=== PATIENT | female | born 1965 | race Caucasian/White ===

== ENCOUNTER 2017-04-25 13:42 | Emergency (ER) | payer MEDICAID ==
[~2017-04-25] VITALS: Ht 170.2 cm; Wt 142.0 kg
[2017-04-25 13:48] VITALS: BP_SYST 133
[2017-04-25] MEDS ORDERED: NACL 0.9% 1,000 ML IV ONE (14:00)
[2017-04-25 14:22] LABS: BILIRUBIN,URINE NEGATIVE (NEGATIVE); BLOOD, URINE NEGATIVE (NEGATIVE); CLARITY/URINE SL HAZY (CLEAR); COLOR,URINE YELLOW (YELLOW); GLUCOSE,URINE NEGATIVE (NEGATIVE); KETONES,URINE NEGATIVE (NEGATIVE); LEUKOCYTE ESTERASE ,URINE NEGATIVE (NEGATIVE); NITRITE, URINE NEGATIVE (NEGATIVE); PH,URINE 5.5 (5.0-8.0); PROTEIN URINE NEGATIVE (NEGATIVE); UROBILINOGEN,URINE 0.2 (0.2-1.0)
[2017-04-25 14:54] LABS: BASOPHILS # (AUTO) 0.1 K/uL (0.0-0.2); BASOPHILS % (AUTO) 1.3 % (0.0-2.0); EOSINOPHILS # (AUTO) 0.2 K/uL (0.0-0.4); EOSINOPHILS % (AUTO) 2.3 % (0.0-4.0); HEMATOCRIT 42.7 % (36-48); LYMPHOCYTES # (AUTO) 2.4 K/uL (1.0-5.5); LYMPHOCYTES % (AUTO) 30.1 % (20.5-51.5); MEAN CORPUSCULAR HEMOGLOBIN 29 pg (27-31); MEAN CORPUSCULAR HGB CONC 33 % (32-36); MEAN CORPUSCULAR VOLUME 87 fL (79.0-98.0); MONOCYTES # (AUTO) 0.5 K/uL (0.0-1.0); MONOCYTES % (AUTO) 5.6 % (1.7-9.3); NEUTROPHILS # (AUTO) 4.9 K/uL (1.8-7.7); NEUTROPHILS % (AUTO) 60.7 % (40.0-70.0); PLATELET COUNT (AUTO) 284 K/uL (130-430); RED BLOOD CELL COUNT(AUTO) 4.93 MIL/uL (4.2-6.2); RED CELL DISTRIBUTION WIDTH 14.1 % (9.0-15.0); WHITE BLOOD COUNT (AUTO) 8.1 K/uL (4.8-10.8)
[2017-04-25 15:08] LABS: CREATININE 0.73 mg/dL (0.55-1.30); POTASSIUM 3.9 mmol/L (3.5-5.1)
[2017-04-25 15:15] LABS: TOTAL BILIRUBIN 0.5 mg/dL (0.0-1.0)
[2017-04-25 15:16] LABS: ALBUMIN 3.7 g/dL (3.4-4.8)
[2017-04-25 16:10] VITALS: BP_SYST 128
== END 2017-04-25 16:10 | disposition home or self-care (01) ==
LOC: SED 13:42
DX: K52.9 Noninfective gastroenteritis and colitis, unspecified (principal); R03.0 Elevated blood-pressure reading, without diagnosis of hypertension; E11.9 Type 2 diabetes mellitus without complications; J45.909 Unspecified asthma, uncomplicated; Z90.49 Acquired absence of other specified parts of digestive tract; Z90.710 Acquired absence of both cervix and uterus
CPT/HCPCS: 36415; 74176; 80053; 81003; 83690; 85025; 99285; J7030

== ENCOUNTER 2018-02-11 07:29 | Emergency (ER) | payer MEDICAID ==
[~2018-02-11] VITALS: Ht 170.2 cm; Wt 146.5 kg
[2018-02-11 07:34] VITALS: BP_SYST 128
[2018-02-11] MEDS ORDERED: KETOROLAC TROMETHAMINE 60 MG/2 ML VIAL IM ONE (07:45)
[2018-02-11] MEDS ORDERED: MORPHINE SULFATE 10 MG/ML VIAL IM ONE (08:45)
[2018-02-11] MEDS ORDERED: ONDANSETRON 4 MG ODT TAB PO ONE (08:45)
[2018-02-11 09:20] VITALS: BP_SYST 132
== END 2018-02-11 09:20 | disposition home or self-care (01) ==
LOC: SED 07:29
DX: M54.2 Cervicalgia (principal); J45.909 Unspecified asthma, uncomplicated; E11.9 Type 2 diabetes mellitus without complications; I10 Essential (primary) hypertension; Z86.79 Personal history of other diseases of the circulatory system
CPT/HCPCS: 96372; 99284; J1885; J2270; Q0162

== ENCOUNTER 2021-04-10 07:15 | Day surgery (SDC) | payer MEDICAID, SELFPAY ==
[~2021-04-10] VITALS: Ht 170.2 cm; Wt 63.0 kg
[2021-04-10] MEDS ORDERED: SIMETHICONE 40 MG/0.6 ML ML ONE (07:49)
[2021-04-10] MEDS: MIDAZOLAM HCL 5 MG/5 ML VIAL ONE ×3 (08:11→08:18)
[2021-04-10] MEDS: MEPERIDINE 100 MG INJ. 100 MG/ML VIAL ONE ×2 (08:11→08:13)
[2021-04-10 13:39] VITALS: BP_SYST 146
== END 2021-04-10 09:20 | disposition home or self-care (01) ==
LOC: SDS 07:15 → SMU 07:16 → SDS 09:20
PROVIDERS: ATTEND Internal Medicine Gastroenterology
DX: R19.4 Change in bowel habit (principal); K29.80 Duodenitis without bleeding; K29.50 Unspecified chronic gastritis without bleeding; E66.01 Morbid (severe) obesity due to excess calories; R19.7 Diarrhea, unspecified; Z98.84 Bariatric surgery status; Z79.899 Other long term (current) drug therapy
CPT/HCPCS: 36415 ×2; 43239; 87081; 87426; 88305; 88312; 88313; 99152; G0378; J2175; J2250